=== PATIENT | female | born 1985 | race Hispanic/Latino ===

== ENCOUNTER 2021-11-04 14:27 | Emergency (ER) | payer SELFPAY ==
[~2021-11-04] VITALS: Ht 154.9 cm; Wt 77.1 kg
[2021-11-04] MEDS ORDERED: KETOROLAC TROMETHAMINE 60 MG/2 ML VIAL IM ONE (15:00)
== END 2021-11-04 15:07 | disposition home or self-care (01) ==
LOC: ER 14:56
DX: R51.9 Headache, unspecified (principal); F17.210 Nicotine dependence, cigarettes, uncomplicated
CPT/HCPCS: 99282; J1885